=== PATIENT | female | born 1950 | race Native Hawaiian/Other Pacific Islander ===

== ENCOUNTER 2017-10-01 14:26 | Outpatient (CLI) | payer OTHER ==
[2017-10-01 16:06] LABS: PLATELET COUNT 164 K/uL (152-353)
[2017-10-01 16:15] LABS: POTASSIUM 3.3 mmol/L (3.6-5.2)
== END 2017-10-01 22:06 | disposition home or self-care (01) ==
LOC: RESP 14:26
PROVIDERS: Nurse Practitioner Family
DX: R06.09 Other forms of dyspnea (principal); M32.8 Other forms of systemic lupus erythematosus; Z79.899 Other long term (current) drug therapy; Z51.81 Encounter for therapeutic drug level monitoring; M81.0 Age-related osteoporosis without current pathological fracture; H16.223 Keratoconjunctivitis sicca, not specified as Sjogren's, bilateral; M79.7 Fibromyalgia
CPT/HCPCS: 36415; 80053; 81000; 82330; 82784; 82785; 83970; 85027; 85651; 86140; 86160; 86162; 86225; 94640; 94664